=== PATIENT | male | born 1990 | race African-American/Black ===

== ENCOUNTER 2023-09-06 03:33 | Emergency (ER) | payer OTHER ==
[2023-09-06 03:52] VITALS: BMI 34.0
[2023-09-06] MEDS ORDERED: predniSONE 20 MG TABLET (UD) ONE (04:12)
[2023-09-06] MEDS: predniSONE 20 MG TABLET (UD) PO ONE (04:23)
[2023-09-06] MEDS: ALBUTEROL SO4 2.5/IPRATROPIUM 0.5 INH SOL 3 ML VIAL.NEB. NEB SCH (04:23)
[2023-09-06 06:16] VITALS: BP 129/75; PULSE 88; RESP 18; TEMP 98.3
== END 2023-09-06 06:16 | disposition home or self-care (01) ==
LOC: JER 03:33
PROC: 3E0F7GC Introduction of Other Therapeutic Substance into Respiratory Tract, Via Natural or Artificial Opening (ICD-10-PCS; principal; 2023-09-06)
DX: R06.02 Shortness of breath (principal); R05.9 Cough, unspecified; J45.901 Unspecified asthma with (acute) exacerbation; Z20.822 Contact with and (suspected) exposure to COVID-19
CPT/HCPCS: 0241U-QW; 99283-25

== ENCOUNTER 2023-12-20 10:07 | Emergency (ER) | payer OTHER ==
[2023-12-20 10:23] VITALS: BP 138/70; PULSE 98; RESP 17; TEMP 98.4; BMI 32.0
[2023-12-20] MEDS ORDERED: ALBUTEROL SO4 2.5/IPRATROPIUM 0.5 INH SOL 3 ML VIAL.NEB. NEB ONE ×2 (10:25→10:58)
[2023-12-20] MEDS: ALBUTEROL SO4 2.5/IPRATROPIUM 0.5 INH SOL 3 ML VIAL.NEB. NEB SCH (10:57)
[2023-12-20] MEDS ORDERED: predniSONE 20 MG TABLET (UD) ONE (10:58)
[2023-12-20] MEDS: predniSONE 20 MG TABLET (UD) PO ONE (10:59)
[2023-12-20 11:20] LABS: BASO % 0.5 % (0-2.0); EOS % 1.2 % (0-4.5); HEMATOCRIT 44.6 % (35.4-49); HEMOGLOBIN 14.8 GM/dL (11.7-16.9); MCH 30.5 pg (25.7-33.7); MCHC 33.2 g/dl (32.0-35.9); MEAN CELL VOLUME 91.8 fl (80-96); MONO % 6.4 % (3.8-10.2); NEUT % 78.9 % (42.8-82.8); PLATELET COUNT 175 10^3/uL (134-434); RBC 4.86 M/mm3 (4.00-5.60); RDW 13.6 % (11.9-15.9); WHITE BLOOD COUNT 8.1 K/mm3 (4.0-10.0)
[2023-12-20 11:27] LABS: INR 1.06 (0.83-1.09)
[2023-12-20 11:29] LABS: ACTIVATED PTT 32.1 SECONDS (25.2-36.5)
[2023-12-20 11:41] LABS: ALBUMIN 3.8 g/dl (3.4-5.0); BLOOD UREA NITROGEN 10.2 mg/dL (7-18)
[2023-12-20 11:45] LABS: CREATININE 1.2 mg/dL (0.55-1.3)
[2023-12-20 11:46] LABS: BILIRUBIN,TOTAL 0.5 mg/dL (0.2-1); TOT PROT 6.8 g/dl (6.4-8.2)
[2023-12-20] MEDS: ALBUTEROL SO4 0.083% IH SOL 2.5 MG/3 ML VIAL.NEB. NEB ONE (11:49)
[2023-12-20] MEDS ORDERED: ALBUTEROL SO4 0.083% IH SOL 2.5 MG/3 ML VIAL.NEB. NEB ONE (11:49)
== END 2023-12-20 12:28 | disposition home or self-care (01) ==
LOC: JER 10:07
PROC: 3E033GC Introduction of Other Therapeutic Substance into Peripheral Vein, Percutaneous Approach (ICD-10-PCS; principal; 2023-12-20)
PROC: 3E0F7GC Introduction of Other Therapeutic Substance into Respiratory Tract, Via Natural or Artificial Opening (ICD-10-PCS; 2023-12-20)
PROC: 3E0F7GC Introduction of Other Therapeutic Substance into Respiratory Tract, Via Natural or Artificial Opening (ICD-10-PCS; 2023-12-20)
DX: R07.89 Other chest pain (principal); R06.02 Shortness of breath; T78.1XXA Other adverse food reactions, not elsewhere classified, initial encounter; J45.901 Unspecified asthma with (acute) exacerbation
CPT/HCPCS: 36415; 71046-TC-FY; 80053; 84484; 85025; 85610; 85730; 93005; 93010; 99285-25

== ENCOUNTER 2024-12-19 18:17 | Emergency (ER) | payer OTHER ==
[2024-12-19 18:30] VITALS: BP 159/87; PULSE 82; RESP 20; TEMP 98.4; BMI 34.4
[2024-12-19] MEDS ORDERED: DEXAMETHASONE SOD PHOSPHATE 10 MG/1 ML VIAL ONE (18:39)
[2024-12-19] MEDS ORDERED: ALBUTEROL SO4 2.5/IPRATROPIUM 0.5 INH SOL 3 ML VIAL.NEB. NEB ONE (18:39)
[2024-12-19] MEDS: ALBUTEROL SO4 2.5/IPRATROPIUM 0.5 INH SOL 3 ML VIAL.NEB. NEB ONE (18:51)
[2024-12-19] MEDS: DEXAMETHASONE SOD PHOSPHATE 10 MG/1 ML VIAL IM ONE (18:51)
== END 2024-12-19 19:41 | disposition home or self-care (01) ==
LOC: JER 18:17
DX: J45.901 Unspecified asthma with (acute) exacerbation (principal); R07.89 Other chest pain
CPT/HCPCS: 93005; 93010; 99284-25; J1100